=== PATIENT | female | born 1995 | race Caucasian/White ===

== ENCOUNTER 2016-09-04 20:00 | Emergency (ER) | payer SELFPAY ==
[2016-09-04 21:23] VITALS: BP 115/58; PULSE 86; TEMP 98.8; BMI 21.8
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
[2016-09-04 22:01] LABS: LEUKOCYTES/URINE NEG (NEGATIVE); NITRITE/URINE NEG (NEGATIVE); RBC/URINE 0-2 (0-5); URINE OCCULT BLOOD 1+ (NEG/TRACE); WBC/URINE 0-2 (0-5)
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
== END 2016-09-04 22:49 | disposition home or self-care (01) ==
LOC: EDMC 20:00
DX: S33.5XXA Sprain of ligaments of lumbar spine, initial encounter (principal); X58.XXXA Exposure to other specified factors, initial encounter; Y93.I9 Activity, other involving external motion
CPT/HCPCS: 72110; 81001; 81025; 99282